=== PATIENT | male | born 1950 | race Caucasian/White ===

== ENCOUNTER → 2017-05-14 08:21 | Outpatient (CLI) | payer BC, MEDICARE, OTHER, SELFPAY ==
[2017-05-14 10:24] LABS: ALB/GLOB Ratio 0.8 RATIO (0.9-2.4); AST(SGOT) 23 U/L (15-37); Alanine Aminotransfer ALT/SGPT 27 U/L (16-61); Albumin, Serum 3.6 g/dL (3.2-5.0); Alkaline Phosphatase 106 U/L (45-117); Anion Gap 8 (5-15); BUN 18 mg/dL (7-18); BUN/Creat Ratio 17.3 RATIO (10-20); Calcium,Total 9.2 mg/dL (8.5-10.1); Chloride 102 mmol/L (98-107); Cholesterol 152 mg/dL (200); Creatinine, Serum 1.04 mg/dL (0.70-1.30); EST Glomerular Filtration Rate 75 mL/min (>60); Est Glom Filt Rate - Afr Amer 91 mL/min (>60); Globulin 4.4 g/dL (2.2-4.2); Glucose 121 mg/dL (74-106); High Density Lipoprotein 46 mg/dL; Potassium 4.2 mmol/L (3.5-5.1); Sodium Level 138 mmol/L (136-145); Triglycerides 104 mg/dL; Very Low Density Lipoprotein 21 mg/dL (5-40)
== END ==
PROVIDERS: Family Provider Family Medicine; PCP Family Medicine; Visit Provider Family Medicine
DX: E78.00 Pure hypercholesterolemia, unspecified (principal)
CPT/HCPCS: 36415; 80053; 80061

== ENCOUNTER → 2017-05-21 16:24 | Outpatient (CLI) | payer BC, MEDICARE, OTHER, SELFPAY ==
--- NOTE | 2017-05-21 11:04 | COLBX_PTH ---
PATIENT: GAUTAM URBANO LOC: [facility] U#:[id number] AGE/SX: 74/M ROOM: RE05/21/[address]: Dr. Dc Monge MD : 1950 BED: DIS: SPEC #: [id number] RECD: 05/21/17 15:24 STATUS: ROBBIN RETA #: [id number] FLORECITA: 05/21/17 11:[address]: Dc Monge DEPT: SURGICAL PATHOLOGY RECD BY: Roel Colindres ENTERED: 05/22/17 07:02 SP TYPE: COLON BX OTHR DR: Dr. Pal Fields MD [facility] Tissues: A - Right colon B - Left colon Procedures: Surgery Specimen Level IV HEADER OPERATION: Colonoscopy with biopsies PRE-OP DIAGNOSIS: Ulcerative colitis TISSUE SUBMITTED: A ? Right colon, rule out ulcerative colitis/dysplasia, B ? Left colon, rule out ulcerative colitis/dysplasia MICROSCOPIC DIAGNOSIS A. Right colon, biopsy: Fragments of colonic mucosa with minimal glandular architectural distortion. Negative for active colitis. B. Left colon, biopsy: Fragments of colonic mucosa with minimal glandular architectural distortion. Negative for active colitis. KATRIN:cortes 05/23/17 COMMENT Correlation with clinical, endoscopic findings and appropriate follow up are necessary. Please make reference to previous specimen ([id number]) transverse colon and left colon, biopsy with diagnosis of moderate diffuse chronic active colitis and rectum, biopsy with diagnosis of moderate diffuse chronic active colitis. MICROSCOPIC DESCRIPTION Slides are reviewed. GROSS DESCRIPTION A - Received in fixative is one container labeled with the patient's name and designated right colon. The specimen consists of multiple irregular fragments of light berman soft tissue that in aggregate measure 2 x 0.3 x 0.1 cm. The specimen is totally submitted in one cassette. B - Received in fixative is one container labeled with the patient's name and designated left colon. The specimen consists of multiple irregular fragments of light berman soft tissue that in aggregate measure 2 x 0.3 x 0.1 cm. The specimen is totally submitted in one cassette. / KATRIN:cortes 05/22/17 TC:5 CPT: 52052 x2
== END ==
PROVIDERS: Family Provider Family Medicine; PCP Family Medicine; Visit Provider Internal Medicine Gastroenterology
DX: K51.90 Ulcerative colitis, unspecified, without complications (principal)
CPT/HCPCS: 88305

== ENCOUNTER → 2017-05-25 07:21 | Outpatient (CLI) | payer BC, MEDICARE, OTHER, SELFPAY ==
[2017-05-25 09:19] LABS: PSA,Total- Diagnostic 4.57 ng/mL (0.0-4.0)
== END ==
PROVIDERS: Family Provider Family Medicine; PCP Family Medicine; Visit Provider Urology
DX: R97.20 Elevated prostate specific antigen [PSA] (principal)
CPT/HCPCS: 36415; 84153

== ENCOUNTER → 2018-03-21 11:46 | Outpatient (CLI) | payer BC, MEDICARE, OTHER, SELFPAY ==
[2018-03-21 14:34] LABS: ALB/GLOB Ratio 0.8 RATIO (0.9-2.4); AST(SGOT) 33 U/L (15-37); Alanine Aminotransfer ALT/SGPT 31 U/L (16-61); Albumin, Serum 3.5 g/dL (3.2-5.0); Alkaline Phosphatase 102 U/L (45-117); Anion Gap 7 (5-15); BUN 19 mg/dL (7-18); BUN/Creat Ratio 19.5 RATIO (10-20); Chloride 107 mmol/L (98-107); Cholesterol 174 mg/dL (200); Creatinine, Serum 0.97 mg/dL (0.70-1.30); EST Glomerular Filtration Rate 81 mL/min (>60); Est Glom Filt Rate - Afr Amer 98 mL/min (>60); Globulin 4.4 g/dL (2.2-4.2); Glucose 148 mg/dL (74-106); Hemoglobin A1c 6.7 % (4.2-6.3); High Density Lipoprotein 44 mg/dL; Potassium 3.9 mmol/L (3.5-5.1); Protein, Total 7.9 g/dL (6.4-8.2); Sodium Level 139 mmol/L (136-145); Triglycerides 143 mg/dL; Very Low Density Lipoprotein 29 mg/dL (5-40)
[2018-03-21 14:47] LABS: Vitamin B12 825 pg/mL (211-911)
[2018-03-21 14:50] LABS: Microalbumin,Random Urine 10.2 mg/L (NO RANGE EST.); Microalbumin:Creatinine Ratio 7.7 mg/g CRE (<30 mg/g CRE)
== END ==
PROVIDERS: Family Provider Family Medicine; PCP Family Medicine; Visit Provider Family Medicine
DX: G62.9 Polyneuropathy, unspecified (principal); E11.9 Type 2 diabetes mellitus without complications
CPT/HCPCS: 36415; 80053; 80061; 82043; 82570; 82607; 83036; 84425

== ENCOUNTER → 2018-06-15 08:23 | Outpatient (CLI) | payer OTHER, SELFPAY ==
[2018-06-15 09:37] LABS: PSA,Total - Annual Screen 5.45 ng/mL (0.00-4.00)
== END ==
PROVIDERS: Family Provider Family Medicine; PCP Family Medicine; Referring Provider Urology; Visit Provider Urology
DX: Z12.5 Encounter for screening for malignant neoplasm of prostate (principal)
CPT/HCPCS: 36415; 84153; G0103

== ENCOUNTER → 2018-06-18 16:10 | Outpatient (CLI) | payer OTHER, MEDICARE, SELFPAY ==
--- NOTE | 2018-06-18 16:14 | US_ITS ---
STUDY: RENAL ULTRASOUND - COMPLETE REASON FOR EXAM: Male, 68 years old. Microscopic hematuria. TECHNIQUE: Ultrasound evaluation of the kidneys was performed with real-time and static bowers-scale imaging. COMPARISON: None. FINDINGS: RIGHT KIDNEY: Normal location of the right kidney, which is normal in size. The right kidney measures 11.9 cm. There is a normal cortex of the right kidney. The renal cortex measures 1.7 cm. There is no right renal mass or cyst. There are no right renal calculi. There is no right hydronephrosis. DISTAL RIGHT URETER: There is non-visualization of the distal right ureter. There is no demonstrated right ureterovesical junction calculus. There is no demonstrated right ureteral jet. LEFT KIDNEY: Normal location of the left kidney, which is abnormal mildly enlarged in size. The left kidney measures 12.7 cm. There is a normal cortex of the left kidney. The renal cortex measures 1.3 cm. There is no left renal mass or cyst. There are no left renal calculi. There is no left hydronephrosis. DISTAL LEFT URETER: There is non-visualization of the distal left ureter. There is no demonstrated left ureterovesical junction calculus. There is no demonstrated left ureteral jet. BLADDER: The poorly distended urinary bladder has a volume of 29.8 ml. The empty urinary bladder has a volume of 26.11 ml. There is a normal wall thickness of the distended urinary bladder. There is no demonstrated mass within the urinary bladder. There are no demonstrated bladder calculi. US/Kidney and Bladder IMPRESSION: 1. Normal ultrasound of the kidneys. 2. Incompletely distended urinary bladder with no discernible change in volume postvoiding. Electronically Signed: Heath Goetz DO at 10:55 EDT Tel [phone], Service support ,
== END ==
PROVIDERS: Family Provider Family Medicine; PCP Family Medicine; Referring Provider Urology; Visit Provider Urology
DX: R31.9 Hematuria, unspecified (principal)
CPT/HCPCS: 76770

== ENCOUNTER → 2018-12-06 12:06 | Outpatient (CLI) | payer OTHER, MEDICARE, SELFPAY ==
[2018-12-06 13:38] LABS: PSA,Total- Diagnostic 4.23 ng/mL (0.0-4.0)
== END ==
PROVIDERS: Family Provider Family Medicine; PCP Family Medicine; Referring Provider Urology; Visit Provider Urology
DX: R97.20 Elevated prostate specific antigen [PSA] (principal)
CPT/HCPCS: 36415; 84153

== ENCOUNTER → 2019-01-07 16:52 | Outpatient (CLI) | payer OTHER, MEDICARE, SELFPAY ==
--- NOTE | 2019-01-07 | CYSPIN_PTH ---
PATIENT: GAUTAM URBANO LOC: [facility] U#:[id number] AGE/SX: 74/M ROOM: RE01/07/[address]: Dr. Henry Vazquez MD : 1950 BED: DIS: SPEC #: [id number] RECD: 01/08/19 09:15 STATUS: ROBBIN RETA #: [id number] FLORECITA: 01/07/19 00:[address]: Henry Vazquez DEPT: CYTOLOGY RECD BY: Jani Ann ENTERED: 01/08/19 09:16 SP TYPE: CYSPIN FL OTHR DR: Dr. Pal Fields MD Tissues: Urine Procedures: Pap Stain (control) Special Stain Group II Cytospin Fluid HEADER OPERATION: Not noted PRE-OP DIAGNOSIS: R82.998 TISSUE SUBMITTED: Urine for cytology DIAGNOSIS CYTOLOGY Urine for cytology (cytospin): Atypical urothelial cells are noted. Mild acute inflammation. See comment. SJ:cortes 01/09/19 COMMENT Clinical correlation and appropriate follow up are necessary. Case has been reviewed in consultation with Dr. Andino who concurs with the above diagnosis. IDC:AM CYTOLOGY STUDY Slides are reviewed. CYTOLOGY GROSS Received is 45 ml of cloudy orange fluid labeled with the patient's name and and designated per the requisition as urine. Submitted for cytology preparation. / cortes 01/08/19 TC:5 CPT: 89630
[2019-01-07 17:13] LABS: Cytology, Body Fluid / CSF SEE PATHOLOGY REPORT
== END ==
PROVIDERS: Family Provider Family Medicine; PCP Family Medicine; Referring Provider Urology; Visit Provider Urology
DX: R82.998 Other abnormal findings in urine (principal)
CPT/HCPCS: 88108; 88313

== ENCOUNTER 2019-03-28 08:34 | Day surgery (SDC) | payer OTHER, MEDICARE, SELFPAY ==
--- NOTE | 2019-02-18 01:42 | HP_ITS ---
I have re-examined the patient. There are no clinical changes since date of exam. Intake Vital Signs 02/18/19 Height 5 ft 8 in 02/18/19 Weight: 197 lb 02/18/19 Body Mass Index (BMI) 29.9 Intake Visit Reasons: right hand Allergies No Known Allergies Allergy (Unverified 07/01/18 08:18) Medications atorvastatin 40 mg tablet 40 mg PO DAILY 07/01/18 [History Confirmed 02/18/19] loratadine 10 mg tablet 10 mg PO DAILY 07/01/18 [History Confirmed 02/18/19] mesalamine ER 0.375 gram capsule,extended release 24 hr 1.5 g PO QAM 07/01/18 [History Confirmed 02/18/19] multivitamin tablet 1 tab PO DAILY 07/01/18 [History Confirmed 02/18/19] omeprazole 20 mg capsule,delayed release 20 mg PO DAILY PRN 02/18/19 [History Confirmed 02/18/19] triamcinolone acetonide 55 mcg nasal spray aerosol 2 spray INTRANASAL DAILY 02/18/19 [History Confirmed 02/18/19] [facility] Medical History (Updated 07/01/18 @ 08:22 by Lesley London) Ulcerative colitis (Chronic) Surgical History (Updated 07/01/18 @ 08:22 by Lesley London) H/O arthroscopy of right knee (Inactive) Hx of cholecystectomy (Inactive) Social History (Updated 02/18/19 @ 13:42 by Kinsey Anderson DO) Smoking Status: Never smoker HPI right hand: Surgical H&P: Yes Details: Parts of this documentation were recorded by a scribe, this documentation accurately reflects the service provided and the decisions made by me, Kinsey Anderson DO 02/18/19 [id number]. GAUTAM URBANO is a 68 year old M here today for right wrist F/U. Patient has discussed his options with his and he decided that he wishes to proceed with right CTR. He is having numbness and tingling along with pain. He had an EMG which showed severe carpal tunnel syndrome. Denies any injections. His symptoms began in December of 2017. ROS Musc Reports as per HPI, Reports muscle weakness, Reports numbness, Reports tingling Skin/Breast Reports system reviewed and no additional complaints, except as docu Neuro Yes as per HPI, Yes numbness, Yes tingling Ortho Exam Right Wrist/Hand Contralateral Normal: Yes Right Wrist: Yes Thenar Atrophy Assessment & Plan Problems 1. Right carpal tunnel syndrome G56.01 Plan Explained that with the muscle wasting his option is do nothing or proceed with surgical release. Reviewed the goal of surgery is to stop progression, he may not recover full strength. Risks, benefits and alternatives of surgery reviewed including but no limited to risk of incisional hypersensitivity, pillar pain and continued symptomology, nerve or artery damage, finger and wrist stiffness. Post op restrictions reviewed. We can inject the left at the same time as release of the right. Follow up post op or sooner if pain, swelling, numbness or associated symptoms, or concerns develop. All questions answered. Patient in agreement of plan. Coding Level of Care Code Off vis,est,level 4 Diagnoses Right carpal tunnel syndrome G56.02/18/19 1343 <Electronically signed by Kinsey wick DO> Date _ Kinsey Anderson DO
[2019-02-18 13:00] VITALS: BMI 29.9
[2019-03-27 09:03] VITALS: BMI 29.9
[2019-03-28] VITALS (7 sets, daily range): BP systolic 117–139; BP diastolic 84–96; PULSE 72–82; RESP 16; TEMP 36.2–36.3; O2SAT 95–98; BMI 31.3
[2019-03-28] MEDS: Lactated Ringers 1,000 ML 100 ML IV (09:23)
--- NOTE | 2019-03-28 10:05 | PCM.DC.ORTHO ---
Discharge Diet: No Restrictions - keep dressing clean and dry, follow up in 10-14 days for dressing change/suture removal, call with concerns Discharge Activity: May Not Drive May shower in (days): 1 Ice area for (Minutes): 20 - Every hour while awake. Weight Bearing Status: Weight bearing as tolerated Keep extremity elevated above heart level: Operative Extremity Call your doctor if your incision/area has: Continuous Slow Oozing, Sudden Increased Bleeding, Increased Pain/ Swelling, Increased Redness, Foul Smelling Discharge Call your doctor if you observe: Fever of 101 or Higher, Coldness, Increased Pain, Numbness or Tingling, Change in Color, Calf discomfort Allergies/Adverse Reactions: Allergies No Known Allergies Allergy (Verified 03/28/19 08:58) Medications to take at Discharge atorvastatin 40 mg tablet 40 mg PO DAILY 07/01/18 loratadine 10 mg tablet 10 mg PO DAILY 07/01/18 multivitamin 1 tab PO DAILY 07/01/18 omeprazole 20 mg capsule,delayed release 20 mg PO DAILY PRN 02/18/19 triamcinolone acetonide 55 mcg nasal spray aerosol 2 spray INTRANASAL DAILY 02/18/19 Mesalamine [Apriso] 0.375 gm PO DAILY 03/07/19 Acetaminophen/Codeine #3 [Tylenol #3 Tablet] 1 - 2 tablet PO Q6H PRN PRN #30 tablet 03/28/19 The following prescriptions were given: Acetaminophen/Codeine #3 [Tylenol #3 Tablet] 1 - 2 tablet PO Q6H PRN PRN #30 tablet PRN Reason: Pain Transmission Status: Received by [facility] Primary Care Physician: Lonnie Fields MD [Primary Care Provider] - Test Results: Test results from this visit will be discussed in further detail at your follow-up appointment, if applicable. Please Follow Up With: Kinsey Anderson, DO - [phone]
--- NOTE | 2019-03-28 10:06 | PCM.OPRPT ---
Report of Operation Date of Procedure: 03/28/19 Pre-Operative Diagnosis: bilateral carpal tunnel syndrome Post-Operative Diagnosis: same Surgery/Procedure Performed:: right carpal tunnel release, left carpal tunnel injection Type of Anesthesia:: Aly Steinberg Anesthesiologist: Calixto Lacy Estimated Blood Loss (mL): none Fluids Replaced: 800cc lr Description of Procedure: Preoperative note Patient is a 68 year old patient with nerve conduction study confirming bilateral carpal tunnel syndrome. Patient failed conservative treatment for his carpal tunnel elected proceed with right carpal tunnel release, left carpal tunnel injection. Risks benefits and alternatives surgery discussed with patient. Risks including but not limited to blood loss, blood clot, infection, neurovascular injury, failure procedure, loss of life and loss of limb. Patient is aware like proceed with right carpal tunnel release left carpal tunnel injection Operative note Patient seen and examined preoperative holding area. right hand was marked. History and physical and consent reviewed. Patient was brought to the operating room placed supine on the operating table. Sign in, anesthesia, antibiotics were administered. right upper extremity was prepped and draped after Aly block was initiated. All bony prominences well-padded SCDs placed on bilateral lower extremities. We marked out our incisions for our carpal tunnel release at the intersection of Ruben's line in the fourth ray flexed. We extended about a centimeter and a half. Timeout was performed. We then checked ensure that the Aly block was working with pickups which it was not so we performed a local block of 10cc 1% lidocaine. We then used a 15 blade to make a skin incision. We then dissected down tenotomy syllable of the transverse carpal ligament. We then used a new 15 blade cut through the transverse carpal ligament down to the level of the median nerve. We then further released the median nerve the combination of the 15 blade and tenotomies. The nerve was grayish in color and adherent to the transverse carpal ligament volarly. We released the transverse carpal ligament distally to the fat pad and then proximally under standard technique. We then palpated to ensure that we released all of the transverse carpal ligament which we did. We irrigated the incision with copious amounts of sterile saline. All bleeders were coagulated. The incision was closed with interrupted 4-0 nylon stitches. Tourniquet was deflated for total working time of 11 minutes. We then moved to the left side. The left carpal tunnel was injected under standard technique with 1cc ropivicaine, 1/2cc kenalog 40. Patient tolerated procedure well there were no complications. Patient transferred to recovery room in stable condition. Postoperative note Hospital pharmacy has prescription Leave dressing clean dry and intact Follow-up in 2 weeks Call with concerns This note was generated with [employer] dictation software. It may contain incorrect words, spelling, and punctuation that were not noted in checking the note before signing
[2019-03-28] MEDS: Cefazolin 2 GM in 0.9% Normal Saline 100 ML IV (10:12)
[2019-03-28] MEDS: Triamcinolone Acetonide 40 MG/ML Vial (10:34)
[2019-03-28] MEDS: Mupirocin Ointment 22gm Tube 1 APPLIC (10:34)
[2019-03-28] MEDS: Ropivacaine 0.5% 30 ML Vial (10:35)
== END 2019-03-28 12:05 | disposition home or self-care (01) ==
LOC: SDC 08:38 → AC 08:39
PROVIDERS: Family Provider Family Medicine; PCP Family Medicine; Referring Provider Orthopaedic Surgery; Visit Provider Orthopaedic Surgery
PROC: (CPT 64721; principal; 2019-03-28 10:15)
DX: G56.03 Carpal tunnel syndrome, bilateral upper limbs (principal); K51.90 Ulcerative colitis, unspecified, without complications; E78.00 Pure hypercholesterolemia, unspecified
CPT/HCPCS: 01992; 20526; 64721; J7120

== ENCOUNTER → 2020-01-15 09:51 | Outpatient (CLI) | payer OTHER, MEDICARE, SELFPAY ==
[2020-01-15 10:52] LABS: ALB/GLOB Ratio 0.9 RATIO (0.9-2.4); AST(SGOT) 35 U/L (15-37); Alanine Aminotransfer ALT/SGPT 35 U/L (16-61); Albumin, Serum 3.9 g/dL (3.2-5.0); Alkaline Phosphatase 93 U/L (45-117); Anion Gap 5 (5-15); BUN 17 mg/dL (7-18); BUN/Creat Ratio 18.9 RATIO (10-20); Chloride 106 mmol/L (98-107); Cholesterol 144 mg/dL (200); EST Glomerular Filtration Rate 88 mL/min (>60); Est Glom Filt Rate - Afr Amer 107 mL/min (>60); Globulin 4.5 g/dL (2.2-4.2); Glucose 115 mg/dL (74-106); High Density Lipoprotein 54 mg/dL; PSA,Total- Diagnostic 5.06 ng/mL (0.0-4.0); Potassium 4.2 mmol/L (3.5-5.1); Protein, Total 8.4 g/dL (6.4-8.2); Sodium Level 136 mmol/L (136-145); Triglycerides 72 mg/dL; Very Low Density Lipoprotein 14 mg/dL (5-40)
== END ==
PROVIDERS: PCP Family Medicine; Referring Provider Family Medicine; Visit Provider Family Medicine
DX: E78.00 Pure hypercholesterolemia, unspecified (principal); R97.20 Elevated prostate specific antigen [PSA]
CPT/HCPCS: 36415; 80053; 80061; 84153

== ENCOUNTER → 2020-07-03 09:41 | Outpatient (CLI) | payer MEDICARE, OTHER, SELFPAY | PROVIDERS: Family Medicine; PCP Family Medicine; Referring Provider Urology; Visit Provider Urology | DX: R97.20 Elevated prostate specific antigen [PSA] (principal) | CPT/HCPCS: 36415; 84153 ==

== ENCOUNTER → 2021-01-31 15:03 | Outpatient (CLI) | payer BC, MEDICARE, OTHER, SELFPAY ==
--- NOTE | 2021-01-31 11:30 | COLBX_PTH ---
PATIENT: GAUTAM URBANO LOC: [facility] U#:[id number] AGE/SX: 74/M ROOM: RE01/31/[address]: Dr. Dc Monge MD : 1950 BED: DIS: SPEC #: [id number] RECD: 01/31/21 14:57 STATUS: ROBBIN RETA #: [id number] FLORECITA: 01/31/21 11:[address]: Dc Monge DEPT: SURGICAL PATHOLOGY RECD BY: Jani Ann ENTERED: 02/01/21 08:31 SP TYPE: COLON BX OTHR DR: Dr. Joe New MD [facility] Tissues: A - Right colon B - Left colon Procedures: Surgery Specimen Level IV HEADER OPERATION: Colonoscopy PRE-OP DIAGNOSIS: Ulcerative colitis, abdominal colitis, rule out dysplasia/colitis TISSUE SUBMITTED: A ? Right colon, B ? Left colon MICROSCOPIC DIAGNOSIS A. Right colon, biopsy: No significant pathologic change. See comment. B. Left colon, biopsy: Minimal architectural change. No evidence of inflammation. See comment. AM:cortes 02/02/2021 COMMENT A & B. No evidence of dysplasia. MICROSCOPIC DESCRIPTION Slides are reviewed. GROSS DESCRIPTION A - Received in fixative is one container labeled with the patient's name and designated right colon. The specimen consists of multiple irregular fragments of light berman soft tissue that in aggregate measure 1 x 0.6 x 0.1 cm. The specimen is totally submitted in one cassette. B - Received in fixative is one container labeled with the patient's name and designated left colon. The specimen consists of multiple irregular fragments of light berman soft tissue that in aggregate measure 0.8 x 0.5 x 0.1 cm. The specimen is totally submitted in one cassette. / KATRIN:cortes 02/01/21 TC:5 CPT: 39023 x2
== END ==
PROVIDERS: PCP Family Medicine; Referring Provider Internal Medicine Gastroenterology; Visit Provider Internal Medicine Gastroenterology
DX: K51.90 Ulcerative colitis, unspecified, without complications (principal)
CPT/HCPCS: 88305

== ENCOUNTER → 2021-02-04 11:18 | Outpatient (CLI) | payer BC, MEDICARE, OTHER, SELFPAY ==
[2021-02-04 12:53] LABS: Anion Gap 6 (5-15); BUN 18 mg/dL (7-18); BUN/Creat Ratio 19.7 RATIO (10-20); Calcium,Total 9.4 mg/dL (8.5-10.1); Chloride 104 mmol/L (98-107); Cholesterol 170 mg/dL (200); Creatinine, Serum 0.91 mg/dL (0.70-1.30); EST Glomerular Filtration Rate 87 mL/min (>60); Est Glom Filt Rate - Afr Amer 105 mL/min (>60); Glucose 101 mg/dL (74-106); High Density Lipoprotein 50 mg/dL; Potassium 3.7 mmol/L (3.5-5.1); Sodium Level 135 mmol/L (136-145); Triglycerides 81 mg/dL; Very Low Density Lipoprotein 16 mg/dL (5-40)
== END ==
PROVIDERS: PCP Family Medicine; Referring Provider Family Medicine; Visit Provider Family Medicine
DX: E11.9 Type 2 diabetes mellitus without complications (principal)
CPT/HCPCS: 36415; 80048; 80061

== ENCOUNTER → 2021-12-06 | Outpatient (CLI) | payer BC, MEDICARE, OTHER, SELFPAY ==
--- NOTE | 2021-12-06 16:21 | CT_ITS ---
STUDY: CT Abdomen And Pelvis W/ Contrast Injection 12/06/2021 7:04 PM REASON FOR EXAM: Male, 71 years old. ABDOMINAL PAIN rule out appendicitis Technologist Notes Other, RLQ PAIN SINCE SUNDAY HX:ULCERATIVE COLITIS,CHOLECYSTECTO TECHNIQUE: Transaxial images were obtained with oral contrast, and with Oral and amp; IV Gastrografin and amp; 100mL Isovue-300 intravenous contrast. Individualized dose optimization techniques were used for this CT. COMPARISON: None. FINDINGS: The visualized lung bases are unremarkable. The visualized portions of the heart are within normal limits. Healed left rib fractures.. There is intrahepatic ductal dilation. There are surgical clips in the gallbladder fossa consistent with a prior cholecystectomy. Unremarkable spleen. Unremarkable pancreas. Unremarkable bilateral adrenal glands. No acute findings of the right kidney. No acute findings of the left kidney. Unremarkable visualized stomach. Wall thickening and inflammation of the distal terminal ileum suggesting terminal ileitis. There are multiple colonic diverticula consistent with diverticulosis. There is non-visualization of the appendix. There are no acute findings of the abdominal aorta. Unremarkable inferior vena cava. Subcentimeter mesenteric lymph nodes. Unremarkable urinary bladder. There is enlargement of the prostate gland. There is a left-sided inguinal hernia containing adipose tissue. There are diffuse degenerative changes of the visualized lumbar spine. CT/Abdomen/Pelvis WITH Contrast IMPRESSION: (NOT LISTED IN ORDER OF SIGNIFICANCE) Wall thickening and inflammation of the distal terminal ileum suggesting terminal ileitis. There are multiple colonic diverticula consistent with diverticulosis. Other findings as above. Electronically Signed: Garcia Mckee MD at 19:07 EDT ,
[2021-12-06 18:36] LABS: CREATININE FINGERSTICK < 0.9 mg/dL (0.70-1.30); EGFR FINGERSTICK > 60.0000 mL/min (>60)
== END | disposition home or self-care (01) ==
LOC: CT 16:17
PROVIDERS: PCP Family Medicine; Visit Provider Family Medicine
DX: R10.9 Unspecified abdominal pain (principal)
CPT/HCPCS: 74177; Q9967

== ENCOUNTER → 2022-01-20 | Outpatient (CLI) | payer BC, MEDICARE, OTHER, SELFPAY | END | disposition home or self-care (01) | LOC: LAB 07:28 | PROVIDERS: PCP Family Medicine; Referring Provider Urology; Visit Provider Urology | DX: R97.20 Elevated prostate specific antigen [PSA] (principal) | CPT/HCPCS: 36415; 84153 ==

== ENCOUNTER → 2022-03-06 | Outpatient (CLI) | payer MEDICARE, OTHER, SELFPAY ==
--- NOTE | 2022-03-06 12:44 | RAD_ITS ---
EXAM: XR LEFT RIBS, 2 VIEWS CLINICAL INDICATION: RIB PAIN TECHNIQUE: Frontal and oblique views of the left ribs. This report was created using [employer] report generation technology. COMPARISON: June 11, 2016 chest radiograph and April 17, 2016 left rib series. FINDINGS: LUNGS AND PLEURAL SPACES: Unremarkable. No consolidation or edema. No pneumothorax. No effusion. BONES/JOINTS: Minimal callus at the healed previously seen fractured ninth rib and nonunited well-corticated margins of the left 10th lateral rib. No acute fractures. Intact left shoulder. No sclerotic or destructive changes observed. SOFT TISSUES: Unremarkable. No soft tissue swelling or gas. UPPER ABDOMEN: Cholecystectomy clips. Moderate stool in the transverse colon. RAD/Ribs Unil 2V No CXR IMPRESSION: Old fractures. No acute rib or shoulder fracture identified. Electronically Signed: Eva Torres MD at 7:33 EST ,
== END | disposition home or self-care (01) ==
PROVIDERS: PCP Family Medicine; Referring Provider Family Medicine; Visit Provider Family Medicine
DX: R07.81 Pleurodynia (principal); S22 Fracture of rib(s), sternum and thoracic spine
CPT/HCPCS: 71100

== ENCOUNTER 2022-06-14 10:22 | Outpatient (CLI) | payer MEDICARE, OTHER, SELFPAY ==
--- NOTE | 2022-06-14 10:26 | RAD_ITS ---
INDICATION: PAIN EXAMINATION/TECHNIQUE: X-RAY - LEFT XR Knee Complete 4 Views or More 4 VIEWS COMPARISON: None. FINDINGS: SOFT TISSUES: No soft tissue swelling or gas. No radiopaque foreign body. BONES/JOINTS: No acute fracture or subluxation.. Normal alignment. Moderate medial, lateral, and patellofemoral joint space narrowing with osteophytes and perhaps resurfacing of the posterior tibial plateau lateral meniscus calcification.. No sclerotic or destructive changes observed. 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 Electronically Signed: Joe Jeronimo MD at 16:51 EDT ,
== END 2022-06-14 23:59 | disposition home or self-care (01) ==
PROVIDERS: PCP Family Medicine; Visit Provider Family Medicine
DX: Z00.00 Encounter for general adult medical examination without abnormal findings (principal); M25.562 Pain in left knee; M17.12 Unilateral primary osteoarthritis, left knee
CPT/HCPCS: 36415; 73564; 80048; 80061

== ENCOUNTER → 2022-06-14 | Outpatient (CLI) | payer MEDICARE, OTHER, SELFPAY ==
[2022-06-14 12:41] LABS: Anion Gap 7 (5-15); BUN 18 mg/dL (7-18); BUN/Creat Ratio 18.7 RATIO (10-20); Calcium,Total 9.3 mg/dL (8.5-10.1); Chloride 105 mmol/L (98-107); Cholesterol 161 mg/dL (200); Creatinine, Serum 0.96 mg/dL (0.70-1.30); EST Glomerular Filtration Rate 81 mL/min (>60); Est Glom Filt Rate - Afr Amer 98 mL/min (>60); Glucose 130 mg/dL (74-106); High Density Lipoprotein 49 mg/dL; Potassium 4.2 mmol/L (3.5-5.1); Sodium Level 139 mmol/L (136-145); Triglycerides 80 mg/dL; Very Low Density Lipoprotein 16 mg/dL (5-40)
== END | disposition home or self-care (01) ==
LOC: MFPLAB 10:26
PROVIDERS: PCP Family Medicine; Referring Provider Family Medicine; Visit Provider Family Medicine
DX: Z00.00 Encounter for general adult medical examination without abnormal findings (principal)
CPT/HCPCS: 36415; 80048; 80061

== ENCOUNTER → 2023-01-02 | Outpatient (CLI) | payer MEDICARE, OTHER, SELFPAY ==
[2023-01-02 16:13] LABS: AST(SGOT) 28 U/L (15-37); Alanine Aminotransfer ALT/SGPT 35 U/L (16-61); Albumin, Serum 3.9 g/dL (3.2-5.0); Alkaline Phosphatase 81 U/L (45-117); Anion Gap 6 (5-15); BUN 20 mg/dL (7-18); BUN/Creat Ratio 21.7 RATIO (10-20); Chloride 107 mmol/L (98-107); Cholesterol 169 mg/dL (200); Creatinine, Serum 0.92 mg/dL (0.70-1.30); EST Glomerular Filtration Rate 85 mL/min (>60); Est Glom Filt Rate - Afr Amer 103 mL/min (>60); Globulin 3.9 g/dL (2.2-4.2); Glucose 107 mg/dL (74-106); High Density Lipoprotein 53 mg/dL; Potassium 4.2 mmol/L (3.5-5.1); Protein, Total 7.8 g/dL (6.4-8.2); Sodium Level 136 mmol/L (136-145); Triglycerides 99 mg/dL; Very Low Density Lipoprotein 20 mg/dL (5-40)
[2023-01-02 16:17] LABS: Microalbumin,Random Urine < 5.0 mg/L (NO RANGE EST.)
== END | disposition home or self-care (01) ==
LOC: MFPLAB 11:17
PROVIDERS: PCP Family Medicine; Visit Provider Family Medicine
DX: E11.9 Type 2 diabetes mellitus without complications (principal)
CPT/HCPCS: 36415; 80053; 80061; 82043; 82570

== ENCOUNTER → 2023-06-04 | Outpatient (CLI) | payer MEDICARE, OTHER, SELFPAY ==
[2023-06-04 10:52] LABS: PSA,Total- Diagnostic 3.32 ng/mL (0.0-4.0)
== END | disposition home or self-care (01) ==
PROVIDERS: PCP Family Medicine; Referring Provider Urology; Visit Provider Urology
DX: N40.0 Benign prostatic hyperplasia without lower urinary tract symptoms (principal)
CPT/HCPCS: 36415; 84153

== ENCOUNTER → 2023-10-31 | Outpatient (CLI) | payer MEDICARE, OTHER, SELFPAY ==
[2023-10-31 12:20] LABS: Erythrocyte Sedimentation Rate 15 mm/hr (0-20)
[2023-10-31 12:24] LABS: Hemoglobin 15.5 g/dL (13.0-16.5); Mean Corp Hgb Conc 33.7 g/dL (32-36); Mean Corpuscular Hgb 30.7 pg (27.0-32.0); Mean Corpuscular Volume 91.1 fL (80-94); Mean Platelet Vol. 9.3 fl (6.2-12.0); Platelet Count 260 K/mm3 (150-450); RBC Distribution Width CV 12.7 % (11.6-14.6); RBC Distribution Width SD 41.8 fl (35.1-43.9); Red Blood Count 5.05 M/mm3 (4.6-6.2); White Blood Count 8.2 K/mm3 (4.4-11.0)
[2023-10-31 12:44] LABS: ALB/GLOB Ratio 0.9 RATIO (0.9-2.4); AST(SGOT) 28 U/L (15-37); Alanine Aminotransfer ALT/SGPT 34 U/L (16-61); Albumin, Serum 3.7 g/dL (3.2-5.0); Alkaline Phosphatase 76 U/L (45-117); Anion Gap 6 (5-15); BUN 22 mg/dL (7-18); BUN/Creat Ratio 24.3 RATIO (10-20); CRP < 2.90 mg/L (0.0-3.0); Calcium,Total 9.3 mg/dL (8.5-10.1); Chloride 108 mmol/L (98-107); EST Glomerular Filtration Rate 87 mL/min (>60); Est Glom Filt Rate - Afr Amer 105 mL/min (>60); Globulin 3.9 g/dL (2.2-4.2); Glucose 126 mg/dL (74-106); Protein, Total 7.6 g/dL (6.4-8.2); Sodium Level 138 mmol/L (136-145)
== END | disposition home or self-care (01) ==
LOC: MTLAB 10:25
PROVIDERS: PCP Family Medicine; Referring Provider Internal Medicine Gastroenterology; Visit Provider Internal Medicine Gastroenterology
DX: K51.90 Ulcerative colitis, unspecified, without complications (principal)
CPT/HCPCS: 36415; 80053; 85027; 85652; 86140

== ENCOUNTER → 2024-03-17 | Outpatient (CLI) | payer MEDICARE, OTHER, SELFPAY ==
[2024-03-17 09:26] LABS: ALB/GLOB Ratio 0.9 RATIO (0.9-2.4); AST(SGOT) 29 U/L (15-37); Alanine Aminotransfer ALT/SGPT 33 U/L (16-61); Albumin, Serum 3.7 g/dL (3.2-5.0); Alkaline Phosphatase 80 U/L (45-117); Anion Gap 5 (5-15); BUN 16 mg/dL (7-18); BUN/Creat Ratio 17.2 RATIO (10-20); Calcium,Total 9.4 mg/dL (8.5-10.1); Chloride 107 mmol/L (98-107); Cholesterol 133 mg/dL (200); Creatinine, Serum 0.93 mg/dL (0.70-1.30); EST Glomerular Filtration Rate 84 mL/min (>60); Est Glom Filt Rate - Afr Amer 101 mL/min (>60); Globulin 4.2 g/dL (2.2-4.2); Glucose 145 mg/dL (74-106); High Density Lipoprotein 55 mg/dL; Potassium 4.2 mmol/L (3.5-5.1); Protein, Total 7.9 g/dL (6.4-8.2); Sodium Level 139 mmol/L (136-145); Triglycerides 53 mg/dL; Very Low Density Lipoprotein 11 mg/dL (5-40)
[2024-03-17 11:06] LABS: Hemoglobin A1c 6.8 % (3.8-5.6)
== END | disposition home or self-care (01) ==
LOC: LAB 08:45
PROVIDERS: PCP Family Medicine; Referring Provider Family Medicine; Visit Provider Family Medicine
DX: E11.9 Type 2 diabetes mellitus without complications (principal); E78.00 Pure hypercholesterolemia, unspecified
CPT/HCPCS: 36415; 80053; 80061; 83036

== ENCOUNTER → 2024-06-30 | Outpatient (CLI) | payer MEDICARE, OTHER, SELFPAY ==
[2024-06-30 10:46] LABS: PSA,Total - Annual Screen 3.41 ng/mL (0.02-4.00)
== END | disposition home or self-care (01) ==
LOC: LAB 09:42
PROVIDERS: PCP Family Medicine; Referring Provider Urology; Visit Provider Urology
DX: Z12.5 Encounter for screening for malignant neoplasm of prostate (principal)
CPT/HCPCS: 36415; 84153; G0103

== ENCOUNTER → 2024-07-22 | Outpatient (CLI) | payer MEDICARE, OTHER, SELFPAY ==
--- NOTE | 2024-07-22 07:24 | CT_ITS ---
PROCEDURE: CT ABD/PELVIS W/WO CONTRAST (procedure code [id number]), 07/22/2024 REASON FOR EXAM: ASYMPTOMATIC MICROSCOPIC HEMATURIA TECHNIQUE: CT abdomen and pelvis was performed with and without IV contrast. Multiplanar reformats were generated. IV CONTRAST: Isovue 370 VOLUME: 95mL RADIATION DOSE SUMMARY: CTDlvol: 24.58+ 13.30+ 24.79+ 24.81+ 27.04+ 29.38 mGy DLP: 5495.14 mGycm One or more dose reduction techniques were used (e.g., Automated exposure control, adjustment of the mA and/or kV according to patient size, use of iterative reconstruction technique). COMPARISON: 12/06/2021 FINDINGS: Lung bases: Coronary atherosclerosis and/or stents. Very mild atelectasis/scarring. Small subpleural nodule in the RIGHT lung base, RIGHT posterolateral costophrenic sulcus, unchanged from 12/06/2021. Liver: Unremarkable. Spleen: Unremarkable. Gallbladder: Cholecystectomy. Pancreas: Atrophic with fatty infiltration of the head/uncinate process. Adrenals: Unremarkable. Kidneys: 2 mm nonobstructing intrarenal calculus on the LEFT. No hydronephrosis or ureteral calculus identified. Bowel: Diverticulosis. Diminutive and otherwise unremarkable appendix. Lymph nodes: Unremarkable. Vasculature: Mild/moderate atherosclerosis. Circumaortic LEFT renal vein, normal variant.. Peritoneum: Unremarkable. Bladder: Underdistended across all phases and suboptimally evaluated. Diffuse mild/moderate bladder wall thickening slightly disproportionate to underdistention. Mass-effect by the enlarged prostate. Tiny diverticulum arising from the RIGHT lateral aspect. Reproductive Organs: Prostatomegaly.. Body Wall: Tiny fat containing umbilical hernia. Small fat containing LEFT inguinal hernia.. Bones: Suspect demineralization. Multilevel spondylosis. Mild thoracolumbar levoscoliosis may be positional. Old LEFT rib fractures.. CT/CT Abd/Pelvis W/WO Contrast IMPRESSION: 1. Prostatomegaly with appearance of the bladder suggesting chronic bladder out let obstruction, with or without superimposed cystitis. Correlate with PSA. No other potential etiology for reported hematu guzman is identified. Note that this should not preclude further clinical evaluation such as cystoscopy, as indicated. 2. 2 mm nonobstructing intrarenal calculus on the LEFT. No hydronephrosis or u reteral calculus identified. 3. Additional description as above. Reading Location: [facility]
[2024-07-22 07:58] LABS: CREATININE FINGERSTICK < 1.0 mg/dL (0.70-1.30); EGFR FINGERSTICK > 60.0000 mL/min (>60)
== END | disposition home or self-care (01) ==
LOC: CT 07:21
PROVIDERS: PCP Family Medicine; Referring Provider Urology; Visit Provider Urology
DX: R31.21 Asymptomatic microscopic hematuria (principal)
CPT/HCPCS: 74178; Q9967; A4216